=== PATIENT | female | born 1985 | race Caucasian/White ===

== ENCOUNTER 2016-12-03 15:25 | Outpatient (CLI) | payer MEDICAID ==
[~2016-12-03] VITALS: Ht 167.6 cm; Wt 102.1 kg
[~2016-12-03 15:25] MED LIST: NITR-58 PO
[2016-12-03 15:46] VITALS: Ht 167.6 cm; Wt 102.1 kg
[2016-12-03 15:47] VITALS: BP 135/75; PULSE 96; RESP 20
[2016-12-03 16:04] LABS: ADD UMIC NO; UR ASCORBIC ACID NEGATIVE (NEGATIVE); UR BILIRUBIN (Dip) NEGATIVE (NEGATIVE); UR BLOOD (Dip) NEGATIVE (NEGATIVE); UR CLARITY CLEAR (CLEAR); UR COLOR STRAW (YELLOW); UR GLUCOSE (Dip) NEGATIVE (NEGATIVE); UR KETONES (Dip) NEGATIVE (NEGATIVE); UR LEUKOCYTE ESTERASE (Dip) NEGATIVE Leu/ul (NEGATIVE); UR NITRITE (Dip) NEGATIVE (NEGATIVE); UR SPECIFIC GRAVITY (Dip) 1.002 (1.003-1.030); UR TOTAL PROTEIN (Dip) NEGATIVE (NEGATIVE); UR UROBILINOGEN (Dip) NEGATIVE (NEGATIVE)
[2016-12-03 16:08] LABS: BASOPHILS % 0.3 % (0.0-2.0); EOSINOPHILS # 0.1 10^3/ul (0.0-0.5); EOSINOPHILS % 0.5 % (0.0-7.0); HEMATOCRIT 36.3 % (37.0-47.0); HEMOGLOBIN 12.6 g/dl (12.0-16.0); LYMPHOCYTES # 2.2 10^3/ul (0.8-2.9); LYMPHOCYTES % 22.3 % (15.0-51.0); MEAN CORPUSCULAR HEMOGLOBIN 30.4 pg (29.0-33.0); MEAN CORPUSCULAR HGB CONC 34.7 g/dl (32.0-37.0); MEAN CORPUSCULAR VOLUME 87.5 fl (82.0-101.0); MEAN PLATELET VOLUME 12.8 fl (7.4-10.4); MONOCYTE # 0.5 10^3/ul (0.3-0.9); MONOCYTES % 5.3 % (0.0-11.0); NEUTROPHIL # 6.9 10^3/ul (1.6-7.5); NEUTROPHILS % 71.1 % (39.0-77.0); PLATELET COUNT 148 10^3/UL (140-415); RED BLOOD COUNT 4.15 10^6/ul (4.20-5.40); RED CELL DISTRIBUTION WIDTH 13.2 % (11.5-14.5); WHITE BLOOD COUNT 9.7 10^3/ul (4.8-10.8)
[2016-12-03 16:10] LABS: INR 0.91; PROTIME 12.3 Sec (12.2-14.2)
[2016-12-03 16:11] LABS: PARTIAL THROMBOPLASTIN TIME 26.6 Sec (25.0-35.0)
[2016-12-03 16:32] LABS: ALBUMIN 3.7 g/dl (3.3-4.9); ALBUMIN/GLOBULIN RATIO 1.02; BILIRUBIN,INDIRECT 0.2 mg/dl (0-1.1); BILIRUBIN,TOTAL 0.2 mg/dl (0.2-1.3); CALCIUM 9.2 mg/dl (8.4-10.2); CREATININE 0.59 mg/dl (0.44-1.00); POTASSIUM 3.8 mmol/L (3.5-5.1); TOTAL PROTEIN 7.3 g/dl (6.1-8.1); URIC ACID 5.2 mg/dl (3.1-7.9)
--- NOTE | 2016-12-03 16:47 | RADRPT ---
PROCEDURE: Obstetrical ultrasound for biophysical profile CLINICAL INDICATION: Biophysical profile. . TECHNIQUE: Obstetrical ultrasound of the uterus for biophysical profile. Transabdominal views are obtained. COMPARISON: 12/03/2016, 01/09/2016 FINDINGS: Single intrauterine gestation. Presentation: Cephalic. Placenta: Anterior. No evidence of placental abruption. No evidence of placenta previa. breathing movement = 2/2 tone = 2/2 motion = 2/2 FREEDOM = 2/2 FREEDOM = 14.1 cm heart rate: 150 beats per minute IMPRESSION: Single intrauterine gestation. Biophysical profile 09/21 RPTAT: AADD .Parker Quintanilla MD, MD Date Time Electronically viewed and signed by .Parker Quintanilla MD, on 12/03/2016 16:46 .B/
--- NOTE | 2016-12-03 16:50 | RADRPT ---
PROCEDURE: Obstetrical ultrasound. CLINICAL INDICATION: , evaluation. Pelvic pain. TECHNIQUE: Transabdominal sonographic images of the uterus obtained after first trimester , greater than 14 weeks gestation. Single intrauterine gestation present. COMPARISON: 01/09/2016 FINDINGS: Single intrauterine gestation. There is a cephalic presentation. Measurements were made in order to determine age. The results are as follows: BPD = 36 weeks 5 day(s), measurement appears slightly off axis HC = 38 weeks 2 day(s) AC = 38 weeks 3 day(s) FL = 36 weeks 3 day(s), appears slightly under measured Heart rate = 165 beats per minute The placenta is anterior. There is no evidence for an abruption or placenta previa. Ovaries are not visualized. IMPRESSION: Single intrauterine gestation of approximately 37 weeks 3 days by ultrasound criteria. [place] estimated weight = 3302 g; 56 percentile for gestational age of 38 weeks 0 days. RPTAT: AADD .Parker Quintanilla MD, MD Date Time Electronically viewed and signed by .Parker Quintanilla MD, on 12/03/2016 16:49 .B/
--- NOTE | 2016-12-03 18:08 | PN ---
Triage Information Date/Time Reason for visit: R/o Preeclampsia Weeks of Gestation 38+ /Para 7/2 Diabetes: none Hypertention: none Objective Vital Signs Date Time Temp Pulse Resp B/P Pulse Ox O2 Delivery O2 Flow Rate FiO2 12/03/16 15:47 98.6 96 20 135/75 99 Room Air Heart Rate: 140's Contractions: None Results/Medications Result Diagram: 12/03/16 1540 12/03/16 1540 Results 24 hrs Laboratory Tests Test 12/03/16 15:30 12/03/16 15:36 12/03/16 15:40 Urine Color STRAW Urine Clarity CLEAR Urine pH 7.0 Urine Specific [place] 1.002 L Urine Ketones NEGATIVE Urine Nitrite NEGATIVE Urine Bilirubin NEGATIVE Urine Urobilinogen NEGATIVE Urine Leukocyte Esterase NEGATIVE Urine Hemoglobin NEGATIVE Urine Glucose NEGATIVE Urine Total Protein NEGATIVE Prothrombin Time 12.3 Prothrombin Time Ratio 1.0 INR International Normalized Ratio 0.91 Activated Partial Thromboplast Time 26.6 Fibrinogen 507.0 H White Blood Count 9.7 # Red Blood Count 4.15 L Hemoglobin 12.6 Hematocrit 36.3 L Mean Corpuscular Volume 87.5 Mean Corpuscular Hemoglobin 30.4 Mean Corpuscular Hemoglobin Concent 34.7 Red Cell Distribution Width 13.2 Platelet Count 148 Mean Platelet Volume 12.8 #H Neutrophils % 71.1 Lymphocytes % 22.3 Monocytes % 5.3 Eosinophils % 0.5 Basophils % 0.3 Nucleated Red Blood Cells % 0.0 Neutrophils # 6.9 Lymphocytes # 2.2 Monocytes # 0.5 Eosinophils # 0.1 Basophils # 0.0 Nucleated Red Blood Cells # 0.0 Sodium Level 138 Potassium Level 3.8 Chloride Level 109 Carbon Dioxide Level 19 L Anion Gap 14 Blood Urea Nitrogen 7 Creatinine 0.59 Glucose Level 95 Uric Acid 5.2 Calcium Level 9.2 Total Bilirubin 0.2 Direct Bilirubin 0.00 Indirect Bilirubin 0.2 Aspartate Amino Transf (AST/SGOT) 20 Alanine Aminotransferase (ALT/SGPT) 21 Alkaline Phosphatase 189 H Total Protein 7.3 Albumin 3.7 Globulin 3.60 H Albumin/Globulin Ratio 1.02 Disposition: Discharge Assessment/Plan BP WNL Labs WNL Return to Hospital for BP monitoring and NST BPP KYLE CHAUDHARY M.D. Dec 03, 2016 18:08
[2016-12-03] MEDS ORDERED: PREN-93 PO (18:14)
--- NOTE | 2016-12-03 19:02 | TRIAGE ---
OB Triage Datetime Report Generated by CPN: 12/03/2016 19:02 Datetime: 12/03/2016 18:03 Labor Evaluation Frequency: IRREG Monitor Mode: External Duration (sec)2399: 50-100 Quality: Mild Pattern: Normal: <= 5 Contractions in 10 Minutes Resting Tone [place]: Relaxed Heart Rate FHR Baseline Rate: 135 Monitor Mode: External US Variability: Moderate 6-25 bpm Accelerations: 15X15 Decelerations: None Category: Category I Datetime: 12/03/2016 16:59 Time of Arrival: 12/03/2016 15:15 EGA: 38.0 Arrived By: Ambulatory Arrived From: Office Chief Complaint: R/O PIH Movement: Present Contractions: Denies/Absent Rupture of Membranes: Denies Vaginal Bleeding: None Vaginal Discharge: Denies Recent Sexual Intercouse: Denies Abdominal Trauma: Not Applicable Additional Patient Complaints: PT DENIES HEADACHE; OR EPIGASTRIC PAIN Time Provider Notified: 12/03/2016 17:00 Provider Notified: DR. FISCHER Datetime: 12/03/2016 16:57 Labor Evaluation Frequency: 3-5 Monitor Mode: External Duration (sec)2399: 50-90 Quality: Mild Pattern: Normal: <= 5 Contractions in 10 Minutes Resting Tone [place]: Relaxed Heart Rate FHR Baseline Rate: 145 Monitor Mode: External US Variability: Moderate 6-25 bpm Accelerations: 15X15 Decelerations: None Category: Category I
== END 2016-12-03 18:10 | disposition home or self-care (01) ==
LOC: OBT 15:25 → L-D 15:27 → OBT 18:10
PROVIDERS: ATTEND Obstetrics & Gynecology
DX: O26.893 Other specified pregnancy related conditions, third trimester (principal); Z3A.36 36 weeks gestation of pregnancy; R10.2 Pelvic and perineal pain
CPT/HCPCS: 76815; 76818; 80053; 81003; 84560; 85025; 85384; 85610; 85730; Z7500; G0463

== ENCOUNTER 2016-12-21 08:51 | Inpatient (IN) | payer MEDICAID ==
[~2016-12-21] VITALS: Ht 167.6 cm; Wt 104.2 kg
[~2016-12-21 08:51] MED LIST changes: -NITR-58 PO; +PREN-93 PO
[2016-12-21 09:18] VITALS: Ht 167.6 cm; Wt 104.2 kg
[2016-12-21 09:20] VITALS: BP 136/85; PULSE 76; RESP 20
[2016-12-21] MEDS ORDERED: LIDOCAINE 1% (MPF) 30 ML INJ INJ PRN (09:30)
[2016-12-21] MEDS ORDERED: BUTORPHANOL 2 MG INJ IV PRN (09:30)
[2016-12-21] MEDS ORDERED: HYDROCODONE/APAP (5/325) TAB PO PRN (09:30)
[2016-12-21] MEDS ORDERED: OXYTOCIN 30 UNITS/LR 500 ML IV PRN (09:30)
[2016-12-21] MEDS ORDERED: CARBOPROST 250 MCG INJ IM PRN (09:30)
[2016-12-21] MEDS ORDERED: METHYLERGONOVINE 0.2 MG INJ IM PRN (09:30)
[2016-12-21] MEDS ORDERED: MISOPROSTOL 200 MCG TAB PR PRN (09:30)
[2016-12-21] MEDS ORDERED: IBUPROFEN 600 MG TAB PO PRN (09:30)
[2016-12-21] MEDS ORDERED: OXYTOCIN 30 UNITS/LR 500 ML IV SCH ×2 (09:30)
[2016-12-21] MEDS: LACTATED RINGER'S 1,000 ML IV SCH ×3 (09:53→23:48)
[2016-12-21 10:17] LABS: ABNORMAL IP MESSAGE 1; BASOPHILS % 0.4 % (0.0-2.0); EOSINOPHILS # 0.1 10^3/ul (0.0-0.5); EOSINOPHILS % 1.1 % (0.0-7.0); HEMATOCRIT 34.9 % (37.0-47.0); HEMOGLOBIN 12.2 g/dl (12.0-16.0); MEAN CORPUSCULAR HEMOGLOBIN 30.6 pg (29.0-33.0); MEAN CORPUSCULAR VOLUME 87.5 fl (82.0-101.0); MEAN PLATELET VOLUME 13.4 fl (7.4-10.4); MONOCYTE # 0.5 10^3/ul (0.3-0.9); MONOCYTES % 6.5 % (0.0-11.0); NEUTROPHIL # 5.5 10^3/ul (1.6-7.5); NEUTROPHILS % 66.6 % (39.0-77.0); PLATELET COUNT 118 10^3/UL (140-415); RED BLOOD COUNT 3.99 10^6/ul (4.20-5.40); RED CELL DISTRIBUTION WIDTH 13.4 % (11.5-14.5); WHITE BLOOD COUNT 8.2 10^3/ul (4.8-10.8)
[2016-12-21 10:19] LABS: ADD UMIC NO; UR ASCORBIC ACID NEGATIVE (NEGATIVE); UR BILIRUBIN (Dip) NEGATIVE (NEGATIVE); UR BLOOD (Dip) NEGATIVE (NEGATIVE); UR CLARITY CLEAR (CLEAR); UR COLOR STRAW (YELLOW); UR GLUCOSE (Dip) NEGATIVE (NEGATIVE); UR KETONES (Dip) NEGATIVE (NEGATIVE); UR LEUKOCYTE ESTERASE (Dip) NEGATIVE Leu/ul (NEGATIVE); UR NITRITE (Dip) NEGATIVE (NEGATIVE); UR SPECIFIC GRAVITY (Dip) 1.002 (1.003-1.030); UR TOTAL PROTEIN (Dip) NEGATIVE (NEGATIVE); UR UROBILINOGEN (Dip) NEGATIVE (NEGATIVE)
[2016-12-21 10:37] LABS: ALBUMIN 3.2 g/dl (3.3-4.9); ALBUMIN/GLOBULIN RATIO 0.86; BILIRUBIN,INDIRECT 0.2 mg/dl (0-1.1); BILIRUBIN,TOTAL 0.2 mg/dl (0.2-1.3); CALCIUM 9.4 mg/dl (8.4-10.2); CREATININE 0.61 mg/dl (0.44-1.00); POTASSIUM 3.7 mmol/L (3.5-5.1); TOTAL PROTEIN 6.9 g/dl (6.1-8.1)
[2016-12-21 10:40] LABS: INR 0.8; PROTIME 11.1 Sec (12.2-14.2); PT RATIO 0.9
[2016-12-21 10:41] LABS: PARTIAL THROMBOPLASTIN TIME 26.9 Sec (25.0-35.0)
--- NOTE | 2016-12-21 11:02 | RADRPT ---
PROCEDURE: US OB. CLINICAL INDICATION: Size and dates TECHNIQUE: Multiple sonographic images of the pelvis and gravid uterus were obtained. The images were reviewed on a PACS workstation. COMPARISON: No prior studies are available for comparison. FINDINGS: There is a single viable intrauterine gestation. Cardiac activity is present with 140 beats per min caden. There is a vertex presentation. The placenta is anterior. There is no evidence for an abruption or placenta previa. Measurements were made in order to determine age. The results are as follows: BPD =9.0 cm HC =33.6 cm AC =35.5 cm FL =7.2 cm Estimated gestational age of approximately 37 weeks and 6 days based on ultrasound measurements. Clinical age: 40 weeks and 4 days. The estimated date of delivery is 01/05/17, based on ultrasound measurements. The EFW = 3474 g, 30.3%, based on LMP age. RPTAT: AA IMPRESSION: Single viable intrauterine gestation of approximately 37 weeks and 6 days based on ultrasound measu rements. .Hemant Glez MD, Date Time Electronically viewed and signed by .Hemant Glez MD, on 12/21/2016 11:02 .S/
[2016-12-21] MEDS ORDERED: LACTATED RINGER'S 1,000 ML IV PRN (12:00)
[2016-12-21] MEDS: MISOPROSTOL 25 MCG CAPSULE PO SCH ×2 (12:20→17:12)
--- NOTE | 2016-12-21 19:46 | PREOPHP ---
DATE OF ADMISSION: 12/21/2016 HISTORY OF PRESENT ILLNESS: Ms. Bharati Christian is a 31-year-old 7, para 2, EDC 12/17/2016, in trauterine at 40 weeks and 4 days gestational age, admitted today for a post-EDC induction . She is currently on Cytotec for cervical ripening. She denies any vaginal bleeding or discharge. [facility] care took place at [facility]. PAST MEDICAL HISTORY: None. MEDICATIONS: vitamins. PAST SURGICAL HISTORY: None. OBSTETRICAL HISTORY: x2 vaginal delivery, x2 termination of , x1 missed AB. GYNECOLOGIC HISTORY: 13, regular 3 to 4 days. Denies any sexually transmitted diseases. Sexually active with 1 partner. SOCIAL HISTORY: Denies any smoking, drugs or alcohol. FAMILY HISTORY: None. REVIEW OF SYSTEMS: All within normal except history of present illness. PHYSICAL EXAMINATION: HEENT: Within normal. LUNGS: CTA bilateral. CARDIOVASCULAR: S1, S2, regular rhythm. ABDOMEN: Gravid, nontender. Negative CVA bilaterally. EXTREMITIES: Negative edema. No calf tenderness. PELVIC: Vaginal exam 1 to 2, 70%, -2 station. heart tracing category 1. Tocometer regular c ontractions. ASSESSMENT: A 31-year-old 7, para 2, intrauterine at 40 weeks and 4 days gestati onal age, admitted for post-EDC induction, currently on Cytotec regimen for cervical ripening. PLAN: Consider Pitocin and expectant vaginal delivery in symptoms. Dictated By: ANTONIO EVANS/LATOYA Conf#: [id number] DID#: [id number]
[2016-12-22] MEDS: LACTATED RINGER'S 1,000 ML IV SCH ×4 (07:05→20:30)
[2016-12-22] MEDS ORDERED: FENTAnyl 2MCG/ML-ROPIV 0.2% 100 ML ONE (08:35)
[2016-12-22] MEDS ORDERED: DIPHENHYDRAMINE 50 MG INJ IV PRN (12:00)
[2016-12-22] MEDS ORDERED: FENTAnyl 2MCG/ML-ROPIV 0.2% 100 ML BAG EPI SCH (12:00)
[2016-12-22] MEDS ORDERED: ONDANSETRON 4 MG INJ IV PRN (12:00)
[2016-12-22] MEDS ORDERED: NALOXONE (0.4 MG/ML) INJ IV PRN (12:00)
[2016-12-22] MEDS ORDERED: TRIMETHOBENZAMIDE 100 MG/ML VIAL IM PRN (12:00)
[2016-12-22] MEDS ORDERED: OXYTOCIN 30 UNITS/LR 500 ML IV SCH (19:00)
[2016-12-22] MEDS ORDERED: MINERAL OIL LIGHT 10 ML VIAL TOP ONE (19:30)
--- NOTE | 2016-12-22 19:50 | QN ---
Documentation Comment patient seen and evaluated no complaints positive epidural ab gravid nt extremity no calf tenderness ve 7/90/-1 srom fhr cat 1 toco regular ctx a/ iup at 40 wks ga, admitted for post edc induction p/ start pitocin iupc expectant vaginal delivery ANTONIO FISCHER MD Dec 22, 2016 19:50
[2016-12-22] MEDS: LACTATED RINGER'S 1,000 ML IV* SCH (21:48)
--- NOTE | 2016-12-22 21:48 | LDN ---
Date/Time of Note Date/Time of Note DATE: 12/22/16 TIME: 21:46 Delivery Summary Weeks of Gestation 40 Placenta Delivered: Spontaneously Meconium: none Laceration repair: 1st degree vaginal laceration repair with 2-0 chromic Anesthesia type: Epidural Estimated blood loss: 200 Sponge & Needle done & correct: Yes All needle counts correct: Yes Any foreign bodies felt in the: No Problems: Infant Delivery Information Sex Infant Sex: male Apgars 1 Minute: 9 5 Minute: 9 Suctioning Nose & mouth suctioned at barbie: No Delee suction performed: No Umbilical Cord Umbilical cord with: 3 Vessels Cord presentations: no nuchal cord Cord Blood was obtained: Yes ANTONIO FISCHER MD Dec 22, 2016 21:48
[2016-12-22] MEDS ORDERED: WITCH HAZEL/GLYCERIN PAD PR PRN (22:00)
[2016-12-22] MEDS ORDERED: OXYCODONE/ASPIRIN (4.88/325) TAB PO PRN ×2 (22:00)
[2016-12-22] MEDS ORDERED: OXYTOCIN 30 UNITS/LR 500 ML IV PRN (22:00)
[2016-12-22] MEDS ORDERED: LANOLIN 7 GM TUBE TOP PRN (22:00)
[2016-12-22] MEDS ORDERED: CARBOPROST 250 MCG INJ IM PRN (22:00)
[2016-12-22] MEDS ORDERED: MISOPROSTOL 200 MCG TAB PR PRN (22:00)
[2016-12-22] MEDS ORDERED: BENZOCAINE 20% 56 ML SPRAY TOP PRN (22:00)
[2016-12-22] MEDS ORDERED: SENNA/DOCUSATE NA (8.6MG/50MG) TAB PO PRN (22:00)
[2016-12-22] MEDS ORDERED: METHYLERGONOVINE 0.2 MG INJ IM PRN (22:00)
[2016-12-22 23:30] VITALS: BP 135/72; PULSE 92; RESP 20
[2016-12-23] VITALS: BP 130/75; PULSE 92; RESP 20
[2016-12-23] MEDS: IBUPROFEN 600 MG TAB PO SCH ×4 (01:22→17:48)
[2016-12-23] MEDS: LACTATED RINGER'S 1,000 ML IV* SCH (02:29)
[2016-12-23 04:00] VITALS: BP 117/61; PULSE 78; RESP 18
[2016-12-23 08:30] VITALS: BP 128/84; PULSE 67; RESP 18
[2016-12-23] MEDS: SENNA/DOCUSATE NA (8.6MG/50MG) TAB PO SCH ×2 (09:32→21:40)
[2016-12-23 10:34] LABS: ABNORMAL IP MESSAGE 1; BASOPHILS % 0.2 % (0.0-2.0); EOSINOPHILS # 0.1 10^3/ul (0.0-0.5); EOSINOPHILS % 0.6 % (0.0-7.0); HEMATOCRIT 30.8 % (37.0-47.0); HEMOGLOBIN 10.2 g/dl (12.0-16.0); LYMPHOCYTES # 2.2 10^3/ul (0.8-2.9); LYMPHOCYTES % 21.6 % (15.0-51.0); MEAN CORPUSCULAR HEMOGLOBIN 29.6 pg (29.0-33.0); MEAN CORPUSCULAR HGB CONC 33.1 g/dl (32.0-37.0); MEAN CORPUSCULAR VOLUME 89.3 fl (82.0-101.0); MEAN PLATELET VOLUME 13.2 fl (7.4-10.4); MONOCYTE # 0.6 10^3/ul (0.3-0.9); MONOCYTES % 5.9 % (0.0-11.0); NEUTROPHIL # 7.1 10^3/ul (1.6-7.5); NEUTROPHILS % 71.3 % (39.0-77.0); PLATELET COUNT 86 10^3/UL (140-415); RED BLOOD COUNT 3.45 10^6/ul (4.20-5.40); RED CELL DISTRIBUTION WIDTH 13.9 % (11.5-14.5)
[2016-12-23 10:37] LABS: POSITIVE DIFF @See below
[2016-12-23 12:17] VITALS: BP 118/72; PULSE 72; RESP 18
[2016-12-23 16:15] VITALS: BP 120/73; PULSE 71; RESP 18
--- NOTE | 2016-12-23 18:33 | PD.PPDC ---
THERAPY ADMINISTRATIVE ASSISTANT Discharge Instruction Condition Patient Condition: Good Diet Diet: Resume Regular Diet Activity/Restrictions Activity: Normal Activity May Shower Restrictions: No Exercising No Lifting No Driving No Sexual Activity Nothing in the Vagina No [place] No Tampons, douche Wound/Drain Care Instructions Wound/Drain Care Instructions: Wash with soap and water Keep clean and dry Follow-up Follow-up with Physician: 2, 3, Week/Weeks Return to clinic for CHIROPRACTIC ASSISTANT Instructions: Fever greater than 101 Chills Worsening abdominal pain Excessive Vaginal Bleeding More than 2 pads per hour Unable to tolerate diet OB Instructions: Breast Tenderness Depression Blurried Vision Headache Surgical Instructions: Incisional Drainage Incisional Redness ANTONIO FISCHER MD Dec 23, 2016 18:33
--- NOTE | 2016-12-23 18:35 | DS ---
Date/Time of Note Date/Time of Note DATE: 12/23/16 TIME: 18:34 Obstetrical Discharge Record Final Diagnosis Final Diagnosis: Term delivered Vaginal Delivery Obstetrical Delivery: Spontaneous Condition on Discharge Physical Assessment Last Vitals: Stable afebrile Voiding: Yes Bowel Movement: Yes Breast: Soft, non-tender, Filling Fundus: Firm Abdomen and Incision: Soft nontender uterine fundus below umbilicus firm Calf Tenderness: No Patient Condition: Fair ANTONIO FISCHER MD Dec 23, 2016 18:35
[2016-12-23 20:00] VITALS: BP 128/86; PULSE 77; RESP 19
[2016-12-24] MEDS: IBUPROFEN 600 MG TAB PO SCH ×2 (00:01→05:26)
[2016-12-24 03:45] VITALS: BP 119/86; PULSE 63; RESP 63
[2016-12-24 08:00] VITALS: BP 121/86; PULSE 67; RESP 18
[2016-12-24] MEDS: SENNA/DOCUSATE NA (8.6MG/50MG) TAB PO SCH (09:00)
== END 2016-12-24 11:45 | disposition home or self-care (01) | DRG 775 ==
LOC: L-D 08:51 → PP1 12-22 23:18
PROVIDERS: ADMIT Obstetrics & Gynecology; ATTEND Obstetrics & Gynecology
PROC: 10E0XZZ Delivery of Products of Conception, External Approach (ICD-10-PCS; principal; 2016-12-22)
PROC: 0UQGXZZ Repair Vagina, External Approach (ICD-10-PCS; 2016-12-22)
PROC: 3E0P3VZ Introduction of Hormone into Female Reproductive, Percutaneous Approach (ICD-10-PCS; 2016-12-22)
DX: O48.0 Post-term pregnancy (principal); O71.4 Obstetric high vaginal laceration alone; Z3A.40 40 weeks gestation of pregnancy; Z37.0 Single live birth
CPT/HCPCS: 62319; 76815; 80053; 81003; 84560; 85025; 85610; 85730; 86592; 86850; 86900; 86901; J0595; J2405; J2590; J3010; J7120